=== PATIENT | female | born 1960 | race African-American/Black ===

== ENCOUNTER → 2016-06-20 | Outpatient (CLI) | payer MEDICARE, MEDICAID | LOC: OD 11:16 | PROVIDERS: ATTEND Family Medicine | DX: R05 Cough (principal) | CPT/HCPCS: 71020 ==

== ENCOUNTER 2017-02-18 10:19 | Day surgery (SDC) | payer MEDICARE, MEDICAID ==
[2017-02-11 11:06] LABS: ABSOLUTE EOSINOPHILS # (AUTO) 0.2 10^3/uL (0.0-0.6); ABSOLUTE LYMPHOCYTES (AUTO) 1.8 10^3/uL (0.5-4.7); ABSOLUTE MONOCYTES (AUTO) 0.5 10^3/uL (0.1-1.4); ABSOLUTE NEUT (AUTO) 2.5 10^3/uL (1.7-8.2); EOSINOPHILS % (AUTO) 4.1 % (0-6); HEMATOCRIT 41.3 % (36.0-47.0); HEMOGLOBIN 13.8 g/dL (12.0-15.5); HGB HCT DIFFERENCE 0.1; LYMPHOCYTES % (AUTO) 36.4 % (13-45); MEAN CORPUSCULAR HGB CONC 33.5 g/dL (32.0-36.0); MEAN CORPUSCULAR VOLUME 90 fl (80-97); MONOCYTES % (AUTO) 9.6 % (3-13); RED BLOOD COUNT 4.61 10^6/uL (3.72-5.28); RED CELL DISTRIBUTION WIDTH 14.6 % (11.5-14.0); SEGMENTED NEUTROPHILS % (AUTO) 48.9 % (42-78); WHITE BLOOD COUNT 5.1 10^3/uL (4.0-10.5)
[2017-02-11 11:08] LABS: APPEARANCE,URINE SLIGHTLY-CLOUDY; BILIRUBIN,URINE NEGATIVE (NEGATIVE); GLUCOSE, URINE NEGATIVE (NEGATIVE); KETONES,URINE NEGATIVE (NEGATIVE); LEUKOCYTE ESTERASE,URINE TRACE (NEGATIVE); NITRITE,URINE NEGATIVE (NEGATIVE); PROTEIN,URINE NEGATIVE (NEGATIVE); UROBILINOGEN,URINE NEGATIVE mg/dL (<2.0)
--- NOTE | 2017-02-11 11:23 | RADIOLOGY REPORT (SQ) ---
EXAM DESCRIPTION: CHEST PA/LATERAL COMPLETED DATE/TIME: 02/11/2017 10:12 am REASON FOR STUDY: PRE OP COMPARISON: 06/20/2016 NUMBER OF VIEWS: Two view. TECHNIQUE: Frontal and lateral radiographic views of the chest acquired. LIMITATIONS: None. FINDINGS: LUNGS AND PLEURA: Calcified granuloma left lung. No new or active infiltrates. MEDIASTINUM AND HILAR STRUCTURES: No masses or contour abnormalities. HEART AND VASCULATURE: Heart normal size. No evidence for failure. BONY STRUCTURES: No acute findings. HARDWARE: None. OTHER: No other significant finding. IMPRESSION: No acute findings. No interval change. TECHNICAL DOCUMENTATION: JOB ID: [id number] [employer]- All Rights Reserved
[2017-02-11 11:34] LABS: ANION GAP 11 (5-19); BLOOD UREA NITROGEN 11 mg/dL (7-20); C-REACTIVE PROTEIN 11.8 mg/L (<10.0); CARBON DIOXIDE 31 mmol/L (22-30); CHLORIDE 103 mmol/L (98-107); CREATININE RESULT 0.91 mg/dL (0.52-1.25); GLUCOSE 95 mg/dL (75-110); POTASSIUM 4.5 mmol/L (3.6-5.0); URIC ACID 5.4 mg/dL (2.5-7.5)
[2017-02-11 11:43] LABS: ERYTHROCYTE SEDIMENTATION RATE 41 mm/hr (0-30)
--- NOTE | 2017-02-11 13:21 | EKG REPORT ---
SEVERITY:- BORDERLINE ECG - SINUS RHYTHM BORDERLINE T ABNORMALITIES, INFERIOR LEADS : Confirmed by: Lorenzo Pino MD 11-Feb-2017 13:20:48
[2017-02-13 07:14] LABS: CYCLIC CITRUL PEPTIDE IGG/A AB 12 units (0-19)
[~2017-02-18 10:19] MED LIST: CEFAZOLIN 2 GM/D5W RTU 2 GM/50 ML RTUPB IV PRN; LACTATED RINGERS 1000 ML IV PRN
[2017-02-18] MEDS ORDERED: BUPIVACAINE HCL 0.5 % INJ/PF 30 ML SDV ONE (11:09)
[2017-02-18] MEDS ORDERED: MIDAZOLAM 2 MG/2 ML INJ ONE (11:54)
[2017-02-18] MEDS ORDERED: FENTANYL CITRATE INJ/PF 100 MCG/2 ML AMPUL ONE ×2 (11:54→15:06)
[2017-02-18] MEDS ORDERED: PROPOFOL INJ 200 MG/20 ML VIAL IV ONE ×2 (11:55→14:45)
[2017-02-18] MEDS ORDERED: IBUPROFEN INJ 800 MG/8 ML VIAL IV ONE (12:02)
[2017-02-18] MEDS ORDERED: MEPERIDINE HCL/PF INJ 25 MG/1 ML DISP.SYRIN IV PRN (13:07)
[2017-02-18] MEDS ORDERED: DIPHENHYDRAMINE HCL 50 MG/ML VIAL IV PRN (13:07)
[2017-02-18] MEDS ORDERED: PROMETHAZINE HCL INJ 25 MG/1 ML VIAL IV PRN (13:07)
[2017-02-18] MEDS ORDERED: MORPHINE SULFATE 10 MG/ML INJ IV PRN (13:07)
[2017-02-18] MEDS ORDERED: FENTANYL CITRATE INJ/PF 100 MCG/2 ML AMPUL IV PRN ×3 (13:07)
[2017-02-18] MEDS ORDERED: MORPHINE SULFATE 10 MG/ML INJ ONE (13:48)
[2017-02-18] MEDS ORDERED: OXYCODONE-ACETAMINOPHEN 5-325 MG TABLET PO PRN (14:17)
[2017-02-18] MEDS ORDERED: ONDANSETRON HCL INJ/PF 4 MG/2 ML SDV IV PRN (14:17)
[2017-02-18] MEDS ORDERED: HYDROMORPHONE HCL INJ/PF 2 MG/ML AMPULE IV PRN (14:17)
--- NOTE | 2017-02-18 14:17 | PDOC DISCHARGE SUMMARY ---
Discharge Summary (SDC) - Discharge Final Diagnosis: Right Wrist Scapholunate Advanced Collapse Date of Surgery: 02/18/17 Discharge Date: 02/18/17 Condition: Good Treatment or Instructions: Schedule Follow Up w/ Dr. Piero Gibson @ [facility] for Surgery to be seen in 10-14 days or as scheduled [place]: [place]: [place]: Ice and elevate Keep splint clean/dry/intact. If your fingers become numb please unwrap the Sd wrap but leave the splint in place, if the sensation does not return within 30 minutes please return to the emergency department. May begin finger range of motion attempting to make full fist. Please use ibuprofen (Motrin or Advil) 600-800 mg every 8 hours as needed for pain or fever. You may also use acetaminophen (Tylenol) 1000 mg every 4-6 hours as needed for pain or fever. Please be aware that many medications contain acetaminophen, do not exceed a total of 1000 mg of acetaminophen every 6 hours. If ibuprofen and acetaminophen are not sufficient for your pain you may take the Percocet. Please be aware that the Percocet does contain Tylenol. Stool softener of choice when on pain medication. Prescriptions: Oxycodone HCl/Acetaminophen [Percocet 7.5-325 mg Tablet] 1 - 2 tab PO ASDIR PRN #45 tab PRN Reason: Referrals: JOSE MARRERO DO [Primary Care Provider] - Discharge Diet: As Tolerated Respiratory Treatments at Home: Deep Breathing/Coughing, Incentive Spirometer Discharge Activity: No Lifting Over 10 Pounds, No Lifting/Push/Pulling Report the Following to Your Physician Immediately: Increase in Pain, Fever over 101 Degrees, Unusual Bleeding, Redness, Swelling, Warmth, Increased Soreness
--- NOTE | 2017-02-18 14:29 | Operative Report ---
Operative Report DATE OF SURGERY: 02/18/17 PREOPERATIVE DIAGNOSIS: Right Wrist SLAC Wrist POSTOPERATIVE DIAGNOSIS: Right Wrist Stage III SLAC Wrist OPERATION: 1. Capitolunate fusion w/ Scaphoid Excision. 2. Posterior Intraosseous Nerve Neurecotmy SURGEON: SHARLA HAWKINS ANESTHESIA: GA COMPLICATIONS: None ESTIMATED BLOOD LOSS: Minimal PROCEDURE: Indication for above procedure: 56-year-old female with long-standing history of right wrist pain. She subsequently followed up at my office which point we reviewed radiographs which demonstrated scapholunate advanced collapse. Given patient's failed conservative management with her ash worker we discussed treatment options including continued conservative management versus operative intervention. Risks and benefits of the surgical procedure were explained risks including neurovascular risk, postoperative pain, postoperative stiffness with loss of motion, nonunion and any unforeseen complications. Patient verbalized understanding and consented for the operative procedure. Procedure In Detail: Patient was seen and evaluated in the preoperative holding area. The RIGHT upper extremity was initialized and marked. Patient received 2g of Ancef IV for bacterial prophylaxis. Patient was taken back to the operative room where transferred to the operative table and placed under general anesthesia. Once they were adequately anesthetized a nonsterile tourniquet was placed on the upper extremity. A surgical team debriefing was performed ensuring all instrumentation was available, the surgical procedure was discussed with possible concerns reviewed. The upper extremity was prepped with chlorhexidine and alcohol and draped in a sterile fashion. A timeout was done identifying correct patient, procedure and extremity everyone in attendance agree with this and verbalized no concerns. The extremity was exsanguinated the tourniquet was inflated to 250 mmHg. Longitudinal skin incision was made just ulnar to Dede's tubercle. Any peripheral veins were coagulated with bipolar cautery. Blunt dissection was performed and the superficial radial nerve was identified and retracted with the radial skin flap. The third dorsal compartment was identified and the EPL tendon transposed radially. I then established the interval between the second and fourth dorsal compartments carefully elevating the second compartment radially and the fourth compartment ulnarly. Within the fourth compartment along its floor on the radial aspect the posterior interosseous nerve was identified and 1.5 cm neurectomy was performed. The dorsal radiocarpal and dorsal intercarpal ligament was identified. A Mensah type capsulotomy was made. There is complete disruption of the scapholunate ligament with end-stage degenerative changes of the radial styloid and radial scaphoid articulation. Degenerative changes of the proximal lunate was also identified. There is no evidence of radial lunate degenerative changes. The scaphoid was then removed in piecemeal with any cancellous bone placed in the back table to use for later bone grafting. Once the scaphoid was removed and confirmed with C-arm fluoroscopy I turned my attention to preparation of the proximal capitate and distal lunate articular surfaces. The surfaces were prepared removing the articular surface down to good cancellus bone. I also remove the articular surface of the triquetrum and hamate. Patient had evidence of a type II lunate with articulation with the hamate. Once I was satisfied with my preparation of the bone surfaces I proceeded with reduction of the radial lunate angle. The capitate was reduced onto the lunate and secured with a 0.062 K wire. C- arm fluoroscopy was obtained which demonstrated appropriate reduction on sagittal and coronal views of the capitolunate and radiolunate articulations. I previous scaphoid bone graft was packed into the arthrodesis site. I then proceeded with fixation utilizing the the first staple was measured BME roderick. To be a 13 mm staple 0.045 K wires were placed to confirm appropriate placement of the staple. Once confirmed this was drilled and a 13 x 10 mm staple was placed providing good compression of the capitolunate arthrodesis site. A second staple was then placed adjacent to this within the capitolunate joint once again appropriate placement of the staple was confirmed with 0.045 K wires and a 11 x 10 mm staple was secured into position. I had excellent stability of my capitolunate arthrodesis site I then turned my attention to arthrodesis of the triquetral hamate articulation. Once again 0.045 K wires were placed to confirm appropriate placement of the staple. And a 13 x 10 mm compression staple was placed providing excellent stability of my capitolunate articulation. Patient had excellent passive range of motion with good stability of the arthrodesis site on C arm fluoroscopy and direct visualization. C arm demonstrated appropriate quaker of the capitolunate articulation on sagittal view and coronal view with acceptable radiolunate angle. The wound was irrigated with normal saline. I then once again packed the arthrodesis sites with the remaining cancellus bone graft from the scaphoid. There is no evidence of staple impingement posteriorly with range of motion and no crepitus was appreciated. The previous capsulotomy was closed with interrupted 3-0 Ethibond suture. The EPL tendon was transposed ulnarly and the remaining retinaculum of the fourth and second dorsal compartments was loosely reapproximated with 3-0 Monocryl while my employment assistant placed a [place] within the fourth dorsal compartment to avoid tight closure. The wound was once again irrigated with normal saline. Tourniquet was deflated. Any peripheral bleeding was coagulated with bipolar cautery until the wound was dry. Subcutaneous tissues were closed with interrupted 3-0 Monocryl suture. Skin was closed with a running horizontal mattress 4-0 nylon. 20 cc of 0.5% Marcaine with epinephrine was injected for postoperative pain control. Patient was then placed in a plaster splint. Sponge counts, instrument counts, needle counts counts were correct. Patient was then awoken from anesthesia. Transferred from the operating room table to the operating room stretcher. There was no intraoperative complications patient tolerated procedure well stable to PACU. Postoperative plan: Patient will follow in the office in 10-14 days. Will obtain radiographs at that time. Patient will be transitioned into a short arm cast until arthrodesis union is noted.
[2017-02-18] MEDS ORDERED: ACETAMINOPHEN 100 ML IV ONE (14:41)
--- NOTE | 2017-02-18 15:20 | RADIOLOGY REPORT (SQ) ---
EXAM DESCRIPTION: WRIST RIGHT 3 VIEWS; NO CHG FLUORO COMPLETED DATE/TIME: 02/18/2017 2:30 pm REASON FOR STUDY: RT WRIST FUSION MID CARPAL ASSISTED WITH C ARM IN OR M19.231 SECONDARY OSTEOARTHR ITIS, RIGHT WRIST Z79.01 HALFWAY (CURRENT) USE OF ANTICOAGULANTS COMPARISON: None. FLUOROSCOPY TIME: 45 seconds 6 digital C-arm images saved to PACS. TECHNIQUE: Intra-operative images acquired during surgical procedure to evaluate progress. NUMBER OF IMAGES: 6 digital C-arm images LIMITATIONS: None. FINDINGS: Fluoroscopy and intra operative imaging during surgery on the right wrist during carpal fu krishan IMPRESSION: Intra procedural imaging and fluoro COMMENT: Quality ID 145: Final reports for procedures using fluoroscopy that document radiation exp osure indices, or exposure time and number of fluorographic images (if radiation exposure indices are not available) Please consult full operative report of the attending physician for description of the procedure. TECHNICAL DOCUMENTATION: JOB ID: [id number] [employer]- All Rights Reserved
--- NOTE | 2017-02-18 15:20 | RADIOLOGY REPORT (SQ) ---
EXAM DESCRIPTION: WRIST RIGHT 3 VIEWS; NO CHG FLUORO COMPLETED DATE/TIME: 02/18/2017 2:30 pm REASON FOR STUDY: RT WRIST FUSION MID CARPAL ASSISTED WITH C ARM IN OR M19.231 SECONDARY OSTEOARTHR ITIS, RIGHT WRIST Z79.01 [facility] (CURRENT) USE OF ANTICOAGULANTS COMPARISON: None. FLUOROSCOPY TIME: 45 seconds 6 digital C-arm images saved to PACS. TECHNIQUE: Intra-operative images acquired during surgical procedure to evaluate progress. NUMBER OF IMAGES: 6 digital C-arm images LIMITATIONS: None. FINDINGS: Fluoroscopy and intra operative imaging during surgery on the right wrist during carpal fu krishan IMPRESSION: Intra procedural imaging and fluoro COMMENT: Quality ID 145: Final reports for procedures using fluoroscopy that document radiation exp osure indices, or exposure time and number of fluorographic images (if radiation exposure indices are not available) Please consult full operative report of the attending physician for description of the procedure. TECHNICAL DOCUMENTATION: JOB ID: [id number] [employer]- All Rights Reserved
[2017-02-18] MEDS ORDERED: DEXAMETHASONE SOD PHOSPHATE INJ 4 MG/1 ML VIAL ONE (16:37)
[2017-02-18] MEDS ORDERED: SUCCINYLCHOLINE CHLORIDE INJ 200 MG/10 ML VIAL ONE (16:37)
[2017-02-18] MEDS ORDERED: LIDOCAINE 2% INJ-PF (20 MG/ML) 10 ML AMPUL ONE (16:37)
[2017-02-18] MEDS ORDERED: ONDANSETRON HCL INJ/PF 4 MG/2 ML SDV ONE (16:37)
[2017-02-18 18:52] VITALS: BP 120/83
== END 2017-02-18 16:55 | disposition home or self-care (01) ==
LOC: OROUT 10:19
PROVIDERS: ATTEND Orthopaedic Surgery
PROC: 0RGN07Z Fusion of Right Wrist Joint with Autologous Tissue Substitute, Open Approach (ICD-10-PCS; 2017-02-18)
PROC: 01B64ZZ Excision of Radial Nerve, Percutaneous Endoscopic Approach (ICD-10-PCS; principal; 2017-02-18 12:30)
DX: M19.231 Secondary osteoarthritis, right wrist (principal); M06.9 Rheumatoid arthritis, unspecified; I10 Essential (primary) hypertension; M79.641 Pain in right hand; M79.642 Pain in left hand; Z79.51 Long term (current) use of inhaled steroids; Z79.1 Long term (current) use of non-steroidal anti-inflammatories (NSAID); Z79.899 Other long term (current) drug therapy
CPT/HCPCS: 64772; 25825; 86200; 93005; 36415; 84550; 85025; 85652; 86038; 86140; 86430; 80048; 81001; 71020; 73110; 93010; J2250; J1100; J3010; J2270; J0330; J2405; J2704; J3490; J0690; J0131; J1741; 01830; C1713

== ENCOUNTER → 2017-05-23 | Outpatient (CLI) | payer MEDICAID, MEDICARE ==
--- NOTE | 2017-05-23 17:52 | WOMENS IMAGING REPORT ---
EXAM DESCRIPTION: BILAT SCREENING MAMMO W/CAD COMPLETED DATE/TIME: 05/23/2017 11:09 am REASON FOR STUDY: ROUTINE SCREENING; Z12.31 Z12.31 ENCNTR SCREEN MAMMOGRAM FOR MALIGNANT NEOPLASM O F JOSE COMPARISON: Multiple since 2008 TECHNIQUE: Standard craniocaudal and mediolateral oblique views of each breast recorded using [employer] acquisition. LIMITATIONS: None. FINDINGS: RIGHT BREAST MASSES: No suspicious masses. CALCIFICATIONS: No new or suspicious calcifications. ARCHITECTURAL DISTORTION: None. DEVELOPING DENSITY: None. ASYMMETRY: None noted. OTHER: No other significant findings. LEFT BREAST MASSES: Multiple less than 1 cm mammographic nodules are present in the upper left breast on MLO view , about 7 to 8 cm from the nipple for a on the CC view, nodules are seen centrally, medially and late rally. Left breast ultrasound recommended for further evaluation. CALCIFICATIONS: No new or suspicious calcifications. ARCHITECTURAL DISTORTION: None. DEVELOPING DENSITY: None. ASYMMETRY: None noted. OTHER: No other significant findings. Read with the assistance of CAD. .[place] - R2 Cenova Version 1.3 .[facility] - R2 Cenova Version 1.3 .[facility] - R2 Cenova Version 2.4 .[facility] - R2 Cenova Version 2.4 .[facility] - R2 Filler And Trimmer Version 9.2 IMPRESSION: No mammographic evidence for malignancy right breast. Probable multiple breast parenchymal cyst normal left for which ultrasound is recommended for followu p BREAST DENSITY: b. There are scattered areas of fibroglandular density. BIRAD: 0 Incomplete: Needs Additional Imaging Evaluation and/or prior Mammograms for Comparison. RECOMMENDATION: RECOMMENDED FOLLOW-UP: Left breast ultrasound The patient will be contacted for additional imaging. COMMENT: The patient has been notified of the results by letter per SA requirements. Additional no tification policies are in place for contacting patient with suspicious or incomplete findings. Quality ID #[id number]: The [employer] recommends an annual screening mammogram for women aged 40 years or over. This facility utilizes a reminder system to ensure that all patients receive reminder letters, and/or direct phone calls for appointments. This includes reminders for routine scr eening mammograms, diagnostic mammograms, or other Breast Imaging Interventions when appropriate. Th is patient will be placed in the appropriate reminder system. The [employer] (ACR) has developed recommendations for screening MRI of the breast s in certain patient populations, to be used in conjunction with mammography. Breast MRI surveillanc e may be appropriate for women with more than 20% lifetime risk of developing breast cancer as deter mined by genetic testing, significant family history of the disease, or history of mantle radiation f or Hodgkins Disease. ACR Practice Guidelines 2008. TECHNICAL DOCUMENTATION: FINDING NUMBER: (1) ASSESSMENT: (1) JOB ID: [id number] [employer]- All Rights Reserved
== END ==
LOC: WI 10:00
PROVIDERS: ATTEND Family Medicine
DX: Z12.31 Encounter for screening mammogram for malignant neoplasm of breast (principal); N63.21 Unspecified lump in the left breast, upper outer quadrant
CPT/HCPCS: 77067

== ENCOUNTER → 2017-06-04 | Outpatient (CLI) | payer MEDICAID, MEDICARE ==
--- NOTE | 2017-06-04 18:26 | WOMENS IMAGING REPORT ---
EXAM DESCRIPTION: U/S BREAST UNILAT LIMITED COMPLETED DATE/TIME: 06/04/2017 2:15 pm REASON FOR STUDY: UNSPECIFIED LUMP; N63.22 N63.22 UNSPECIFIED LUMP IN THE LEFT BREAST, UPPER INNER QUAD COMPARISON: Mammograms 05/23/2017, 02/27/2016, 02/16/2016 Left breast ultrasound 02/27/2016 TECHNIQUE: Real-time and static grayscale imaging performed of the left breast targeted to the area of mammographic concern. Selected color Doppler images recorded. LIMITATIONS: None. FINDINGS: Ultrasound of the upper half left breast was performed. There are multiple subcentimeter breast parenchymal cysts which correlate with the mammographic findings. The largest of these are 6 mm in diameter the 3 o'clock position, and 9 mm in diameter at the 12 o'clock position. IMPRESSION: Benign breast parenchymal cysts. No worrisome findings BIRAD: 2 Benign findings. RECOMMENDATION: RECOMMENDED FOLLOW-UP: Please continue yearly bilateral screening mammography in May. Please consider bilateral screening tomosynthesis. COMMENT: The [employer] (ACR) has developed recommendations for screening MRI of the breasts in certain patient populations, to be used in conjunction with mammography. Breast MRI s urveillance may be appropriate for women with more than 20% lifetime risk of developing breast cancer as determined by genetic testing, significant family history of the disease, or history of mantle r adiation for Hodgkins Disease. ACR Practice Guidelines 2008. TECHNICAL DOCUMENTATION: JOB ID: [id number] [email or web address]- All Rights Reserved
== END ==
LOC: WI 13:40
PROVIDERS: ATTEND Family Medicine
DX: N60.02 Solitary cyst of left breast (principal)
CPT/HCPCS: 76642

== ENCOUNTER → 2017-12-22 | Outpatient (CLI) | payer MEDICARE ==
--- NOTE | 2017-12-22 10:46 | RADIOLOGY REPORT (SQ) ---
EXAM DESCRIPTION: HIP LEFT AP/LATERAL COMPLETED DATE/TIME: 12/22/2017 10:13 am REASON FOR STUDY: LEFT HIP PAIN COMPARISON: None. NUMBER OF VIEWS: Two views. TECHNIQUE: AP pelvis and additional frog-leg view of the left hip. LIMITATIONS: None. FINDINGS: MINERALIZATION: Normal. LEFT HIP: No acute fracture. No worrisome bony lesions. There is high-grade left hip joint space na rrowing with a dgwo-go-siym appearance, and bulky bony spurring along the acetabular rim and left fem oral head. RIGHT HIP: No fracture or dislocation. No worrisome bone lesions. No significant joint space narrow ing PUBIS AND ISCHIUM: No fracture. PELVIS: No fracture. SACRUM: No fracture or dislocation. No worrisome bone lesions. LOWER LUMBAR SPINE: No fracture or dislocation. No worrisome bone lesions. No significant disc disea se. SOFT TISSUES: No findings. OTHER: No other significant finding. IMPRESSION: No acute fracture left hip. High-grade joint space narrowing and bony spurring from ost eoarthritis TECHNICAL DOCUMENTATION: JOB ID: [id number] [employer]- All Rights Reserved Reading location - IP/workstation name: [email or web address]
== END ==
LOC: OD 09:52
PROVIDERS: ATTEND Family Medicine
DX: M25.552 Pain in left hip (principal)

== ENCOUNTER → 2018-02-05 | Outpatient (CLI) | payer MEDICARE, MEDICAID ==
[2018-02-05 10:07] LABS: ABSOLUTE EOSINOPHILS # (AUTO) 0.1 10^3/uL (0.0-0.6); ABSOLUTE LYMPHOCYTES (AUTO) 1.8 10^3/uL (0.5-4.7); ABSOLUTE MONOCYTES (AUTO) 0.4 10^3/uL (0.1-1.4); ABSOLUTE NEUT (AUTO) 2.4 10^3/uL (1.7-8.2); BASOPHILS % (AUTO) 0.7 % (0-2); EOSINOPHILS % (AUTO) 2.7 % (0-6); HEMATOCRIT 38.3 % (36.0-47.0); HEMOGLOBIN 13.3 g/dL (12.0-15.5); MEAN CORPUSCULAR HEMOGLOBIN 30.2 pg (27.0-33.4); MEAN CORPUSCULAR HGB CONC 34.7 g/dL (32.0-36.0); MEAN CORPUSCULAR VOLUME 87 fl (80-97); PLATELET COUNT 271 10^3/uL (150-450); RED BLOOD COUNT 4.39 10^6/uL (3.72-5.28); RED CELL DISTRIBUTION WIDTH 14.4 % (11.5-14.0); SEGMENTED NEUTROPHILS % (AUTO) 50.6 % (42-78); TOTAL CELLS COUNTED % (AUTO) 100 %; WHITE BLOOD COUNT 4.6 10^3/uL (4.0-10.5)
[2018-02-05 10:18] LABS: APPEARANCE,URINE CLEAR; BILIRUBIN,URINE NEGATIVE (NEGATIVE); COLOR,URINE YELLOW; GLUCOSE, URINE NEGATIVE (NEGATIVE); KETONES,URINE NEGATIVE (NEGATIVE); LEUKOCYTE ESTERASE,URINE NEGATIVE (NEGATIVE); NITRITE,URINE NEGATIVE (NEGATIVE); PROTEIN,URINE NEGATIVE (NEGATIVE); URINE SPECIFIC GRAVITY 1.012; UROBILINOGEN,URINE NEGATIVE mg/dL (<2.0)
[2018-02-05 10:29] LABS: ANION GAP 10 (5-19); BLOOD UREA NITROGEN 13 mg/dL (7-20); CALCIUM 9.7 mg/dL (8.4-10.2); CARBON DIOXIDE 28 mmol/L (22-30); CHLORIDE 102 mmol/L (98-107); GLUCOSE 93 mg/dL (75-110); POTASSIUM 4.4 mmol/L (3.6-5.0); SODIUM 139.5 mmol/L (137-145)
--- NOTE | 2018-02-05 10:55 | RADIOLOGY REPORT (SQ) ---
EXAM DESCRIPTION: CHEST PA/LATERAL COMPLETED DATE/TIME: 02/05/2018 9:47 am REASON FOR STUDY: PRE-OP COMPARISON: 02/11/2017. TECHNIQUE: Frontal and lateral radiographic views of the chest acquired. NUMBER OF VIEWS: Two view. LIMITATIONS: None. FINDINGS: LUNGS AND PLEURA: Evidence of previous granulomatous disease, calcified left lung granulom a with calcifications also in the mediastinum within lymph nodes. This is chronic. Lungs otherwise clear. No acute or suspicious opacities. MEDIASTINUM AND HILAR STRUCTURES: No masses or contour abnormalities. HEART AND VASCULAR STRUCTURES: Heart normal size. No evidence for failure. BONES: No acute findings. HARDWARE: None in the chest. OTHER: No other significant finding. IMPRESSION: Evidence of previous granulomatous disease. Stable chest without acute or suspicious ab normality. TECHNICAL DOCUMENTATION: JOB ID: [id number] [employer]- All Rights Reserved Reading location - IP/workstation name: ELISA
--- NOTE | 2018-02-05 20:23 | EKG REPORT ---
SEVERITY:- BORDERLINE ECG - SINUS RHYTHM BORDERLINE T ABNORMALITIES, DIFFUSE LEADS : Confirmed by: Francesco Garcia 05-Feb-2018 20:22:30
== END ==
LOC: OD 08:56
PROVIDERS: ATTEND Orthopaedic Surgery
DX: Z01.810 Encounter for preprocedural cardiovascular examination (principal); Z01.812 Encounter for preprocedural laboratory examination; Z01.818 Encounter for other preprocedural examination
CPT/HCPCS: 36415; 71046; 80048; 81001; 85025; 93005; 93010

== ENCOUNTER 2018-03-02 05:28 | Inpatient (IN) | payer MEDICARE, MEDICAID ==
[~2018-03-02 05:28] MED LIST changes: +BUPIVACAINE INJ/PF LIPOSOME/PF 266 MG/20 ML SDV INJ PRN; -CEFAZOLIN 2 GM/D5W RTU 2 GM/50 ML RTUPB IV PRN; +CEFAZOLIN INJ 1 GM VIAL IV PRN; +IBUPROFEN 800 MG in NORMAL SALINE 250 ML IV PRN; +LANSOPRAZOLE 15 MG TAB.RAP.DR PO PRN; +LIDOCAINE 0.5% INJ-PF (5 MG/ML) 50 ML SDV SUBCUT PRN; +OXYCODONE HCL SR 10 MG TABLET PO PRN; +VANCOMYCIN HCL 1,000 MG in DEXTROSE 5%-WATER 250 ML IV PRN
[2018-03-02] MEDS ORDERED: OXYCODONE HCL SR 10 MG TABLET PO ONE (05:39)
[2018-03-02] MEDS ORDERED: CEFAZOLIN INJ 1 GM VIAL ONE (05:39)
[2018-03-02] MEDS ORDERED: LANSOPRAZOLE 15 MG TAB.RAP.DR ONE (05:39)
[2018-03-02] MEDS ORDERED: THROMBIN (BOVINE) TOPICAL 20000 UNIT VIAL ONE (06:27)
[2018-03-02] MEDS ORDERED: THROMBIN (BOVINE) 5000 UNIT EPITAXIS KIT ONE (06:27)
[2018-03-02] MEDS ORDERED: BUPIVACAINE HCL 0.25% /EPINEPHRINE INJ/PF 30 ML SDV ONE (06:28)
[2018-03-02] MEDS ORDERED: FENTANYL CITRATE INJ/PF 100 MCG/2 ML AMPUL ONE (07:14)
[2018-03-02] MEDS ORDERED: KETAMINE HCL INJ 500 MG/10 ML VIAL ONE (07:14)
[2018-03-02] MEDS ORDERED: MIDAZOLAM 2 MG/2 ML INJ ONE (07:15)
[2018-03-02] MEDS ORDERED: EPHEDRINE SULFATE INJ 50 MG/1 ML AMPULE ONE (07:15)
[2018-03-02] MEDS ORDERED: PROPOFOL INJ 200 MG/20 ML VIAL IV ONE (07:15)
[2018-03-02] MEDS ORDERED: BUPIVACAINE HCL/DEX-WATER/PF 15 MG/2 ML AMPULE ONE (07:16)
[2018-03-02] MEDS ORDERED: EPINEPHRINE INJ/PF 1 MG/1 ML AMPULE ONE (07:36)
[2018-03-02] MEDS ORDERED: PROMETHAZINE HCL INJ 25 MG/1 ML VIAL IV PRN ×2 (08:05)
[2018-03-02] MEDS ORDERED: OXYCODONE-ACETAMINOPHEN 5-325 MG TABLET PO PRN ×2 (08:05)
[2018-03-02] MEDS ORDERED: DIPHENHYDRAMINE HCL 50 MG/ML VIAL IV PRN ×2 (08:05→08:40)
[2018-03-02] MEDS ORDERED: MEPERIDINE HCL/PF INJ 25 MG/1 ML DISP.SYRIN IV PRN (08:05)
[2018-03-02] MEDS ORDERED: FENTANYL CITRATE INJ/PF 100 MCG/2 ML AMPUL IV PRN ×3 (08:05)
[2018-03-02] MEDS ORDERED: ACETAMINOPHEN 325 MG TABLET PO PRN (08:40)
[2018-03-02] MEDS ORDERED: ONDANSETRON 4 MG TAB.RAPDIS PO PRN (08:40)
[2018-03-02] MEDS ORDERED: ZOLPIDEM TARTRATE 5 MG TABLET PO PRN (08:40)
[2018-03-02] MEDS ORDERED: ONDANSETRON HCL INJ/PF 4 MG/2 ML SDV IV PRN (08:40)
[2018-03-02] MEDS ORDERED: MAG HYDROX/AL HYDROX/SIMETH SUSP 30 ML UDCUP PO PRN (08:40)
[2018-03-02] MEDS ORDERED: OXYCODONE HCL IR 5 MG TABLET PO PRN (08:40)
[2018-03-02] MEDS ORDERED: MORPHINE SULFATE 10 MG/ML INJ IV PRN ×3 (08:40)
[2018-03-02] MEDS ORDERED: RINGERS SOLUTION,LACTATED 1,000 ML IV PRN (08:40)
--- NOTE | 2018-03-02 08:45 | Operative Report ---
Operative Report DATE OF SURGERY: 03/02/18 PREOPERATIVE DIAGNOSIS: Left hip arthritis OPERATION: Left hip arthroplasty SURGEON: KEISHA DICKENS ANESTHESIA: Spinal TISSUE REMOVED OR ALTERED: Femoral head to pathology ESTIMATED BLOOD LOSS: 100 PROCEDURE: Implants used: Femur: Size 1 Harmony Accolade 2 stem Acetabular shell: 54 mm hemispherical shell Liner: 36 mm flat cross-link polyethylene liner Head: 36 mm chrome cobalt head -5 neck The patient is placed in a right lateral decubitus position on the operating table. The left lower extremity and hindquarter is prepped and draped in a sterile fashion. A curvilinear incision was made over the greater trochanter a posterior approach the hip was taken. The femoral head is dislocated and the femoral neck transected using an oscillating saw. Attention was next turned to the acetabulum. Soft tissues cleared off the acetabulum using electrocautery. The acetabulum was then prepared using a series of hemispherical reamers until a 54 millimeters reamer is seated. Subsequently a 54 millimeters Yasmani titanium hemispherical shell is impacted into position and secured with one screw. A standard flat 36 millimeters cross- link liner is impacted into the shell. Attention was next turned to the femur. Access is gained to the femoral canal using a box osteotome to the piriformis fossa. The femur is then prepared using a series of broaches until a number 2 broach is seated. Even with a -5 neck I was unable to reduce the the #2 trial. I suspect this reflects the fact that the patient has been short with a leg length discrepancy for considerable period of time. Hence the #2 trial was removed and #1 trial is impacted deeper. Subsequently A trial reduction was now performed using a 36 millimeters head with -5 neck. Preoperative leg length was partially corrected and is excellent anterior posterior stability. A decision was made to proceed with the above construct. All trial implants were removed. The wound is irrigated with pulsed lavage. A number 1 stem is impacted into the femoral canal. A trial reduction was again performed with a 36 mm head and a -5 neck. Findings as previously. The hip was dislocated one last time and the final chrome-cobalt head is impacted onto the trunnion. The hip was reduced. Wound is copiously irrigated with pulsed lavage. Sent closed in layers using interrupted Vicryl followed by roderick. A sterile dressing is applied and the patient's returned to recovery room in satisfactory patient.
[2018-03-02] MEDS ORDERED: QUINAPRIL HCL 40 MG PO SCH (10:00)
[2018-03-02] MEDS ORDERED: (PENDING PHARMACY ID) (Nifedipine [Adalat Cc] 60 MG) PO SCH (10:00)
[2018-03-02] MEDS ORDERED: TRANEXAMIC ACID INJ/PF 1,000 MG/10 ML SDV IV ONE (10:30)
[2018-03-02] MEDS: MORPHINE SULFATE 10 MG/ML INJ IM PRN ×2 (11:31→18:20)
--- NOTE | 2018-03-02 11:50 | RADIOLOGY REPORT (SQ) ---
EXAM DESCRIPTION: PELVIS AP COMPLETED DATE/TIME: 03/02/2018 9:20 am REASON FOR STUDY: Post Op Long Cassette in PACU M16.12 UNILATERAL PRIMARY OSTEOARTHRITIS, LEFT HIP COMPARISON: None. NUMBER OF VIEWS: One view TECHNIQUE: Digital radiographic images of the pelvis post-procedure LIMITATIONS: None. FINDINGS: BONES: No worrisome or unexpected findings post-procedure. DEVICE: Total hip replacement. Components of the device in appropriate location. SOFT TISSUES: No worrisome findings. Expected postoperative soft tissue changes. IMPRESSION: SATISFACTORY POSTOPERATIVE PELVIS. TECHNICAL DOCUMENTATION: JOB ID: [id number] [employer]- All Rights Reserved Reading location - IP/workstation name: [email or web address]
[2018-03-02] MEDS ORDERED: PHENYLEPHRINE HCL INJ/PF 10 MG/1 ML SDV ONE (13:50)
[2018-03-02] MEDS: IBUPROFEN 800 MG in NORMAL SALINE 250 ML IV SCH ×2 (18:14→21:59)
[2018-03-02] MEDS: SENNOSIDES/DOCUSATE 8.6-50 MG 1 EACH TABLET PO SCH (18:20)
[2018-03-02] MEDS ORDERED: VANCOMYCIN HCL 1,000 MG in DEXTROSE 5%-WATER 250 ML IV ONE (20:40)
[2018-03-02] MEDS: OXYCODONE HCL SR 10 MG TABLET PO SCH (21:58)
[2018-03-02] MEDS ORDERED: (PENDING PHARMACY ID) (Trazodone Hcl [Desyrel] 100 MG) PO SCH (22:00)
[2018-03-02] MEDS ORDERED: TRAZODONE HCL 50 MG TABLET PO SCH (22:00)
[2018-03-03] MEDS ORDERED: LANSOPRAZOLE 30 MG TAB.RAP.DR PO SCH (06:00)
[2018-03-03] MEDS: IBUPROFEN 800 MG in NORMAL SALINE 250 ML IV SCH (06:25)
[2018-03-03 06:38] LABS: HEMATOCRIT 32.2 % (36.0-47.0); HEMOGLOBIN 10.7 g/dL (12.0-15.5); MEAN CORPUSCULAR HEMOGLOBIN 29.5 pg (27.0-33.4); MEAN CORPUSCULAR HGB CONC 33.3 g/dL (32.0-36.0); MEAN CORPUSCULAR VOLUME 89 fl (80-97); PLATELET COUNT 231 10^3/uL (150-450); RED BLOOD COUNT 3.64 10^6/uL (3.72-5.28); RED CELL DISTRIBUTION WIDTH 14.2 % (11.5-14.0); WHITE BLOOD COUNT 7.9 10^3/uL (4.0-10.5)
[2018-03-03 07:04] LABS: ANION GAP 12 (5-19); BLOOD UREA NITROGEN 14 mg/dL (7-20); CALCIUM 9.6 mg/dL (8.4-10.2); CARBON DIOXIDE 28 mmol/L (22-30); CHLORIDE 98 mmol/L (98-107); GLUCOSE 120 mg/dL (75-110); POTASSIUM 4.7 mmol/L (3.6-5.0); SODIUM 137.8 mmol/L (137-145)
--- NOTE | 2018-03-03 07:23 | PDOC DISCHARGE SUMMARY ---
General - Admit/Disc Date/PCP Admission Date/Primary Care Provider: 03/02/18 05:28 JOSE MARRERO DO Discharge Date: 03/03/18 - Discharge Diagnosis (1) Hip arthritis Is this a current diagnosis for this admission?: Yes - Additional Information Resuscitation Status: Full Code Home Medications: Albuterol Sulfate [Ventolin Hfa] 1 - 2 puff IH PRN PRN 02/07/17 Ibuprofen [Motrin 800 mg Tablet] 800 mg PO PRN PRN 02/07/17 Multivitamin [Tab-A-Barby] 1 each PO DAILY 02/07/17 Naproxen 500 mg PO PRN PRN 02/07/17 Nifedipine [Adalat cc] 60 mg PO DAILY 02/07/17 Quinapril HCl 40 mg PO BID 02/07/17 Trazodone HCl [Desyrel] 100 mg PO QHS 02/07/17 Calcium Carbonate/Vitamin D3 [Calcium 500-Vit D3 400 Tablet] 1 tab PO DAILY 01/20 Lubiprostone [Amitiza 24 Mcg Capsule] 24 mcg PO DAILY 02/10/18 Hydrocodone/Acetaminophen [[place] 5-325 mg Tablet] 1 tab PO Q8HP PRN 03/02/18 Omeprazole 20 mg PO DAILY 03/02/18 History of Present Illness History of Present Illness: MARINA VELAZQUEZ is a 57 year old female Patient is a 57-year-old black female with progressive left hip pain and functional disability secondary osteoarthritis. Patient is admitted for elective left hip arthroplasty. Hospital Course Hospital Course: Patient is admitted through the operating room where she undergoes uncomplicated left hip arthroplasty. She is returned to floor in satisfactory condition. She makes excellent progress with physical therapy on the operative day ambulating 150 feet. Physical Exam Vital Signs: Temp Pulse Resp BP Pulse Ox 37.0 C 84 16 115/73 98 03/02/18 23:51 03/02/18 23:51 03/02/18 23:51 03/02/18 23:51 03/02/18 23:51 Intake & Output 03/02/18 03/03/18 03/04/18 06:59 06:59 06:59 Intake Total 0 5967 Output Total 2650 Balance 0 3317 Weight 92.1 kg General appearance: PRESENT: no acute distress, obese, well-nourished Head exam: PRESENT: normocephalic Respiratory exam: PRESENT: unlabored Cardiovascular exam: PRESENT: RRR Pulses: PRESENT: +1 pedal pulses bilateral Vascular exam: PRESENT: normal capillary refill GI/Abdominal exam: PRESENT: soft Rectal exam: PRESENT: deferred Extremities exam: PRESENT: other - Left hip dressing clean dry and intact. Leg lengths are equal. Distal neurovascular examination is intact. Neurological exam: PRESENT: alert, awake, oriented to person, oriented to place , oriented to time, oriented to situation. ABSENT: motor sensory deficit Psychiatric exam: PRESENT: appropriate affect, normal mood. ABSENT: homicidal ideation, suicidal ideation Skin exam: PRESENT: dry, intact, warm. ABSENT: cyanosis, rash Results Laboratory Results: 03/03/18 06:07 03/03/18 06:07 03/03/18 03/03/18 06:07 06:07 WBC 7.9 RBC 3.64 L Hgb 10.7 L Hct 32.2 L MCV 89 MCH 29.5 MCHC 33.3 RDW 14.2 H Plt Count 231 Sodium 137.8 Potassium 4.7 Chloride 98 Carbon Dioxide 28 Anion Gap 12 BUN 14 Creatinine 0.82 Est GFR ( Amer) > 60 Est GFR (Non-Af Amer) > 60 Glucose 120 H Calcium 9.6 Impressions: Pelvis X-Ray 03/02/18 08:41 IMPRESSION: SATISFACTORY POSTOPERATIVE PELVIS. Status: Imported from [facility] Qualifiers - * PATIENT BEING DISCHARGED WITH ANY OF THE FOLLOWING DIAGNOSIS: No VTE patient discharged on overlapping Therapy?: Yes Plan Discharge Plan: Patient to be discharged home with home health services and DME. Follow-up with Dr. Love [place] for surgery in 2 weeks for staple removal.
[2018-03-03] MEDS ORDERED: ASPIRIN 81 MG TABLET, ENT COATED PO SCH (10:00)
[2018-03-03] MEDS ORDERED: NIFEDIPINE 30 MG TAB.ER.24 PO SCH (10:00)
[2018-03-03] MEDS ORDERED: LUBIPROSTONE 24 MCG CAPSULE PO SCH (10:00)
[2018-03-03] MEDS ORDERED: ENALAPRIL MALEATE 10 MG TABLET PO SCH (10:00)
[2018-03-03] MEDS ORDERED: PRENATAL VITAMIN W DHA CAPSULE PO SCH (10:00)
[2018-03-03] MEDS ORDERED: LISINOPRIL 10 MG TABLET PO SCH (10:00)
[2018-03-03] MEDS: OXYCODONE HCL SR 10 MG TABLET PO SCH (10:11)
[2018-03-03] MEDS: SENNOSIDES/DOCUSATE 8.6-50 MG 1 EACH TABLET PO SCH (10:12)
[2018-03-03 11:37] VITALS: BP 102/66
== END 2018-03-03 11:11 | disposition home or self-care (01) | DRG 470 ==
LOC: INOR 05:28 → 4S 09:58
PROVIDERS: ADMIT Orthopaedic Surgery; ATTEND Orthopaedic Surgery
PROC: 0SRB02Z Replacement of Left Hip Joint with Metal on Polyethylene Synthetic Substitute, Open Approach (ICD-10-PCS; principal; 2018-03-02 07:30)
DX: M16.12 Unilateral primary osteoarthritis, left hip (principal); I10 Essential (primary) hypertension; K21.9 Gastro-esophageal reflux disease without esophagitis; E66.3 Overweight; M06.9 Rheumatoid arthritis, unspecified; Z90.710 Acquired absence of both cervix and uterus; Z88.8 Allergy status to other drugs, medicaments and biological substances; Z83.3 Family history of diabetes mellitus; Z82.49 Family history of ischemic heart disease and other diseases of the circulatory system
CPT/HCPCS: 01214; 36415; 72170; 80048; 85027; 86850; 86900; 86901; 88304; 88311; 94799; C1776; G8978-GP; G8979-GP; G8987-GO; G8988-GO; J0171; J0690; J1741; J2250; J2270; J2370; J2704; J3010; J3370; J3490; J7050; J7060

== ENCOUNTER → 2018-09-14 | Outpatient (CLI) | payer MEDICARE ==
--- NOTE | 2018-09-14 11:04 | WOMENS IMAGING REPORT ---
EXAM DESCRIPTION: BILAT SCREENING MAMMO W/CAD COMPLETED DATE/TIME: 09/14/2018 8:59 am REASON FOR STUDY: Z12.31 ROUTINE BILATERAL SCREENING Z12.31 ENCNTR SCREEN MAMMOGRAM FOR MALIGNANT N EOPLASM OF JOSE COMPARISON: 2008. 2011- 2017 TECHNIQUE: Standard craniocaudal and mediolateral oblique views of each breast recorded using [employer] acquisition. LIMITATIONS: None. FINDINGS: No suspicious masses, suspicious calcifications or architectural distortion. No areas of s uspicion. Read with the assistance of CAD. .[facility] - R2 Stamp Classifier Version 9.2 IMPRESSION: ASSESSMENT: Negative MAMMOGRAM. BIRADS 1 BREAST DENSITY: b. There are scattered areas of fibroglandular density. BIRAD: 1 NEGATIVE RECOMMENDATION: ROUTINE SCREENING COMMENT: The patient has been notified of the results by letter per MQSA requirements. Additional no tification policies are in place for contacting patient with suspicious or incomplete findings. Quality ID #[id number]: The [employer] recommends an annual screening mammogram for women aged 40 years or over. This facility utilizes a reminder system to ensure that all patients receive reminder letters, and/or direct phone calls for appointments. This includes reminders for routine scr eening mammograms, diagnostic mammograms, or other Breast Imaging Interventions when appropriate. Th is patient will be placed in the appropriate reminder system. TECHNICAL DOCUMENTATION: FINDING NUMBER: (1) ASSESSMENT: (1) JOB ID: [id number] [email or web address]- All Rights Reserved Reading location - IP/workstation name: [email or web address]
== END ==
LOC: WI 08:33
PROVIDERS: ATTEND Family Medicine
DX: Z12.31 Encounter for screening mammogram for malignant neoplasm of breast (principal)
CPT/HCPCS: 77067

== ENCOUNTER → 2019-11-09 | Outpatient (CLI) | payer MEDICAID, MEDICARE ==
--- NOTE | 2019-11-09 13:20 | WOMENS IMAGING REPORT ---
EXAM DESCRIPTION: 3D SCREENING MAMMO BILAT IMAGES COMPLETED DATE/TIME: 11/09/2019 7:54 am REASON FOR STUDY: Z12.31 ENCOUNTER FOR SCREENING MAMMOGRAM FOR MALIGNANT NEOPLASM OF BREAST Z12.31 ENCNTR SCREEN MAMMOGRAM FOR MALIGNANT NEOPLASM OF JOSE COMPARISON: Multiple since 2008 EXAM PARAMETERS: Standard craniocaudal and mediolateral oblique views of each breast recorded using digital acquisition and breast tomosynthesis. Read with the assistance of CAD. .[facility] - R2 Property Worker Version 9.2 LIMITATIONS: None. FINDINGS: Findings present which are benign by mammographic criteria. No suspicious masses, calcific ations or architectural distortion. Pertinent benign findings: Benign left breast cysts upper outer quadrant. Stable asymmetrically dens e tissue right breast 11 o'clock position Benign mammographic findings may include one or more of the following: Smooth masses, popcorn/rim/coa rse calcifications, asymmetries, post-procedure changes, and lesions with long-standing stability. IMPRESSION: BENIGN MAMMOGRAPHIC FINDINGS. BIRADS 2 BREAST DENSITY: b. There are scattered areas of fibroglandular density. BIRAD: ASSESSMENT: 2 BENIGN FINDING(S) RECOMMENDATION: ROUTINE SCREENING Please continue yearly bilateral screening mammography/tomosynthesis in November 2020 COMMENT: The patient has been notified of the results by letter per [place] requirements. Additional no tification policies are in place for contacting patient with suspicious or incomplete findings. Quality ID #[id number]: The [employer] recommends an annual screening mammogram for women aged 40 years or over. This facility utilizes a reminder system to ensure that all patients receive reminder letters, and/or direct phone calls for appointments. This includes reminders for routine scr eening mammograms, diagnostic mammograms, or other Breast Imaging Interventions when appropriate. Th is patient will be placed in the appropriate reminder system. TECHNICAL DOCUMENTATION: FINDING NUMBER: (1) ASSESSMENT: (1) JOB ID: [id number] [employer] All Rights Reserved Reading location - IP/workstation name: [email or web address]
== END ==
LOC: WI 07:38
PROVIDERS: ATTEND Family Medicine
DX: Z12.31 Encounter for screening mammogram for malignant neoplasm of breast (principal); N60.02 Solitary cyst of left breast
CPT/HCPCS: 77063; 77067